=== PATIENT | male | born 1950 | race Caucasian/White ===

== ENCOUNTER 2023-12-16 10:03 | Emergency (ER) | payer OTHER, SELFPAY ==
[2023-12-16 10:27] VITALS: BP 162/101
[2023-12-16 11:26] LABS: % Basophils 0.7 % (0-2); % Eosinophils 1.3 % (0-6); % Immature Granulocytes 0.3 % (0-0.5); % Lymphocytes 18.3 % (20.5-51.1); % Monocytes 7.1 % (1.7-9.3); % Neutrophils 72.3 % (42.2-75.2); Absolute Basophils 0.1 10^3/uL (0-0.2); Absolute Eosinophils 0.1 10^3/uL (0-0.7); Absolute Lymphocytes 1.2 10^3/uL (1.2-3.4); Absolute Monocytes 0.5 10^3/uL (0.1-0.6); Absolute Neutrophils 4.9 10^3/uL (1.4-6.5); Hematocrit 42.2 % (39.0-52.0); Hemoglobin 14.4 g/dL (13.0-18.0); Mean Corp Hgb Conc. 34.1 g/dL (33.0-37.0); Mean Corpuscular Hgb 29.1 pg (27.0-31.0); Mean Corpuscular Volume 85.3 fL (80.0-94.0); Mean Platelet Volume 8.9 fL (7.4-10.4); Nucleated Red Blood Cells % 0 % (-); Platelet Count 198 10^3/uL (130-400); Red Blood Cell Count 4.95 10^6/uL (4.70-6.10); White Blood Cell Count 6.7 10^3/uL (4.8-10.8)
[2023-12-16 11:36] LABS: ALT (SGPT) 23 U/L (0-50); AST (SGOT) 26 U/L (17-59); Albumin 4.8 g/dl (3.5-5.0); Alkaline Phosphatase 63 U/L (38-126); Blood Urea Nitrogen 15 mg/dl (9-20); Calcium 9.9 mg/dl (8.4-10.2); Carbon Dioxide 25 mmol/L (22-30); Chloride 103 mmol/L (98-107); Glucose 117 mg/dl (70-99); Potassium 4.1 mmol/L (3.5-5.1); Sodium 138 mmol/L (135-145); Total Bilirubin 1.1 mg/dl (0.2-1.3); Total Protein 7.4 g/dl (6.3-8.2); eGFR > 60.00
--- NOTE | 2023-12-16 11:50 | ED.GENMED ---
History of Present Illness
General
Chief Complaint: Male Genito-Urinary Symptoms
Time Seen by Provider: 12/16/23 10:51
Travel History
Have you had any contact with someone who has COVID-19?: No
Do you have any symptoms of coronavirus? Fever > 100 degrees, chills, cough, shortness of breath, sore throat, loss of taste or smell, muscle aches, or headache?: No
History of Present Illness
History of Present Illness:
73-year-old male with history of spinal stenosis, hypertension, and hyperlipidemia presents to the emergency department for evaluation of worsening scrotal and perineal pain that is been ongoing for the past several months. He has seen his
urologist as an outpatient scrotal ultrasound that showed no pathology. He has a pain management appointment scheduled in 10 days. Denies any painful urination. Pain is worse with sitting or lying down. Denies any lower extremity paresthesias,
urinary incontinence, fevers, chills, or night sweats. Has taken gabapentin without relief
Past History
Past History
ED Past Medical History: HTN, Psychiatric (Anxiety), Other (Heart murmur, mitral valve disorder) and Other (Hemorrhoids)
Social History
Tobacco: Non-smoker
Alcohol: Occasional
Drug: None
Personal:
Living: with family
Review of Systems
Review of Systems
Allergies reviewed?: Yes
All Other Systems: ROS reviewed and negative except as documented in HPI and ROS
Phy Exam
Physical Exam
Physical Exam:
GEN: Well appearing, NAD, WDWN
HEENT: Oral mucosa moist, no scleral icterus
Cardiac: Regular rate
Lung: No respiratory distress, no tachypnea
Genitourinary: No external abnormality is identified, no scrotal swelling masses, no perineal erythema, bogginess, or induration
MSK: No gross deformity or injuries
Skin: Good color, no pallor or jaundice, no rashes
Neuro: AO x3, moves all extremities freely
Psych: Calm, cooperative
Course
Orders/Labs/Results
Orders:
Orders
12/16/23 11:08
CT Pelvis With Iv Contrast Urgent
Comment:
Reason For Exam: perineal pain
12/16/23 11:14
Complete Blood Count/With Diff Urgent
Comprehensive Metabolic Panel Urgent
12/16/23 14:49
HYDROmorphone [Dilaudid] 0.5 mg IV NOW STA
Abnormal Lab Results
12/16/23
11:14
Lymphocytes % 18.3 L %
(20.5-51.1)
Glucose 117 H mg/dl
(70-99)
12/16/23 11:14
12/16/23 11:14
Vital Signs
Initial and Last Documented VS:
Initial Vital Signs
Temp Pulse Resp BP Pulse Ox
98.3 F 108 20 162/101 98
12/16/23 10:27 12/16/23 10:27 12/16/23 10:27 12/16/23 10:27 12/16/23 10:27
Last Documented Vital Signs
Temp Pulse Resp BP Pulse Ox
98.3 F 108 20 162/101 98
12/16/23 10:27 12/16/23 10:27 12/16/23 10:27 12/16/23 10:27 12/16/23 10:27
MDM/Problems Addressed
MDM/Problems Addressed:
Imaging shows no internal pathology. 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 Will provide opiates for pain, patient encouraged to keep his pain management appointment and recommend outpatient physical therapy as
well
*Critical Care Note
Total Time (30-74mins, 75-104mins- exclusive of procedures): Not Applicable
ED Attending Note
-
Portions of this chart may have been created with voice recognition software.� Occasional wrong word or��sound alike� substitutions may have occurred due to the inherent limitations of voice recognition software.
Discharge Plan
Departure
Patient Disposition: Home (Routine Discharge)
Date of Disposition: 12/16/23
Time of Disposition: 14:37
Patient with high blood pressure during this ER visit?: No
Discharge Problem:
Pudendal neuralgia
Prescriptions:
New
oxycodone 5 mg tablet
5 mg PO Q4H PRN (Reason: Pain) Qty: 20 0RF
No Action
amlodipine 5 MG tablet
5 mg PO HS
aspirin 81 MG tablet,chewable
1 tab PO HS
benazepril [Lotensin] 40 MG tablet
40 mg PO HS
hydrocodone-acetaminophen 1 TABLET tablet
1 tab PO Q4HPRN PRN (Reason: pain) Qty: 20 0RF
ondansetron 4 MG tablet,disintegrating
4 mg PO TIDPRN PRN (Reason: NAUSEA) Qty: 15 0RF
Referrals:
Lul Chauhan PA-C [Family Provider] -
Ananth Ceron MD [Active] - Call in 1-3 days for appt
Activity Restrictions/Additional Instructions:
Your CT scan shows no abnormalities that would explain your symptoms. This is likely inflammation or entrapment of the pudendal nerve which is a nerve that comes out of the sacrum and supplies sensation to your genitals. Treatment of this is
challenging but oftentimes involves medication, physical therapy, and sometimes injections. Follow-up with pain management as discussed. I will refer you to physical therapy and start you on gabapentin
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 Please follow-up with a vascular surgeon to discuss this abnormality although it is not related to your current symptoms
Interventions
Interventions:
*Risk Screen - Suicide Last Done: 12/16/23 11:00
*General Assessment Last Done: 12/16/23 11:00
*Neglect/Abuse Screening Last Done: 12/16/23 11:00
*ED COVID-19 Vaccine History Last Done: 12/16/23 10:27
*Nursing Disposition Last Done: 12/16/23 15:41
ED-Male Genitourinary Assessment Last Done: 12/16/23 11:00
Discharge Date and Time
Discharge Date/Time: 12/16/23 15:42
Print Language: [place]
[2023-12-16] MEDS: DILAUDID 0.5 MG IV (14:59)
== END 2023-12-16 15:42 | disposition home or self-care (01) ==
LOC: EMR 10:03
PROVIDERS: Physician Assistant; EMERGENCY PHYSICIAN Emergency Medicine; FAMILY PHYSICIAN Physician Assistant Medical
DX: M79.2 Neuralgia and neuritis, unspecified (principal); R10.2 Pelvic and perineal pain; M48.00 Spinal stenosis, site unspecified; I10 Essential (primary) hypertension; E78.00 Pure hypercholesterolemia, unspecified; N50.811 Right testicular pain; N50.812 Left testicular pain; Z87.19 Personal history of other diseases of the digestive system
CPT/HCPCS: 99284; 96374; 72193; 80053; 85025; Q9967